=== PATIENT | female | born 1995 | race American Indian/Alaskan Native ===

== ENCOUNTER 2017-07-29 02:40 | Emergency (ER) | payer SELFPAY ==
[2017-07-29 03:31] VITALS: BP 137/86
[2017-07-29 04:25] LABS: Basophils % (Auto) 0.8 % (0.0-1.8); Hematocrit 35.9 % (30.3-42.9); Hemoglobin 12.3 gm/dl (10.1-14.3); Mean Corpuscular HGB Conc 34 % (30-34); Mean Corpuscular Hemoglobin 30 pg (28-32); Mean Corpuscular Volume 89 fl (79-97); Platelet Count 304 K/mm3 (140-440); Red Blood Count 4.05 M/mm3 (3.65-5.03); White Blood Count 7.7 K/mm3 (4.5-11.0)
[2017-07-29 04:49] LABS: Alanine Aminotransferase 20 units/L (7-56); Albumin 3.8 g/dL (3.9-5); Alkaline Phosphatase 42 units/L (35-129); BUN/Creatinine Ratio 16.66; Blood Urea Nitrogen 10 mg/dL (7-17); Calcium 8.9 mg/dL (8.4-10.2); Carbon Dioxide 20 mmol/L (22-30); Glucose 98 mg/dL (65-100); Lipase 23 units/L (13-60); Total Protein 7.6 g/dL (6.3-8.2)
[2017-07-29 04:50] LABS: Anion Gap 19 mmol/L; Potassium 3.7 mmol/L (3.6-5.0); Sodium 135 mmol/L (137-145)
[2017-07-29 05:04] LABS: Bacteria,Urine 1+ /HPF (Negative); Bilirubin,Urine NEG (Negative); Blood,Urine SM (Negative); Ketones,Urine NEG (Negative); Leukocyte Esterase,Urine NEG (Negative); Mucus,Urine 2+ /HPF; Nitrite,Urine NEG (Negative); Protein,Urine <15 mg/dL mg/dL (Negative); Urobilinogen,Urine < 2.0 mg/dL (<2.0)
== END 2017-07-29 04:30 | disposition left against medical advice (07) ==
LOC: ED 02:40
DX: O20.9 Hemorrhage in early pregnancy, unspecified (principal); Z3A.11 11 weeks gestation of pregnancy; Z53.21 Procedure and treatment not carried out due to patient leaving prior to being seen by health care provider
CPT/HCPCS: 36415; 80053; 81001; 81025; 83690; 85025

== ENCOUNTER 2017-09-09 11:55 | Emergency (ER) | payer MEDICAID ==
[2017-09-09 13:09] VITALS: BP 127/80
--- NOTE | 2017-09-09 15:13 | Emergency Department Report ---
ED Female HPI - General Chief complaint: Urogenital-Female Stated complaint: VAGINAL PAIN Time Seen by Provider: 09/09/17 14:50 Source: patient Mode of arrival: Ambulatory Limitations: No Limitations - History of Present Illness Initial comments: pt presents for vagina ulcers pain and discharge x 3 days last contact 5 days ago pt denies n/v abdominal pain MD Complaint: vaginal discharge, possible STD, other (vaginal ulcers) Onset/Timin -: days(s) Radiation: non-radiating Severity: moderate Severity scale (0 -10): 4 Quality: sharp, burning Consistency: constant Improves with: none Worsens with: movement, other (palpation) Are you Now?: No Last Menstrual Period: 09/03/17 EDC: 06/10/18 Associated Symptoms: vaginal discharge, rash. denies: vaginal bleeding, abdominal pain, nausea/vomiting, fever/chills, headaches, loss of appetite, dysuria, hematuria, seizure, shortness of breath, syncope, weakness - Related Data Sexually active: Yes : 2 Para: 1 A: 1 Previous Rx's Medication Instructions Recorded Last Taken Type Acyclovir [Zovirax] 400 mg PO TID #30 tablet 09/09/17 Unknown Rx metroNIDAZOLE [Flagyl] 500 mg PO Q12HR #14 tab 09/09/17 Unknown Rx Allergies Allergy/AdvReac Type Severity Reaction Status Date / Time No Known Allergies Allergy Verified 09/09/17 13:06 ED Review of Systems ROS: Stated complaint: VAGINAL PAIN Other details as noted in HPI Constitutional: denies: chills, fever Eyes: denies: eye pain, eye discharge, vision change ENT: denies: ear pain, throat pain Respiratory: denies: cough, shortness of breath, wheezing Cardiovascular: denies: chest pain, palpitations Endocrine: no symptoms reported Gastrointestinal: denies: abdominal pain, nausea, diarrhea Genitourinary: other (ulcers ). denies: urgency, dysuria, discharge Musculoskeletal: denies: back pain, joint swelling, arthralgia Skin: denies: rash, lesions Neurological: denies: headache, weakness, paresthesias Psychiatric: denies: anxiety, depression Hematological/Lymphatic: denies: easy bleeding, easy bruising ED Past Medical Hx - Past Medical History Previous Medical History?: No - Surgical History Additional Surgical History: - Social History Smoking Status: Never Smoker Substance Use Type: None - Medications Home Medications: Home Medications Medication Instructions Recorded Confirmed Last Taken Type Acyclovir [Zovirax] 400 mg PO TID #30 tablet 09/09/17 Unknown Rx metroNIDAZOLE [Flagyl] 500 mg PO Q12HR #14 tab 09/09/17 Unknown Rx ED Physical Exam - General Limitations: No Limitations General appearance: alert, in no apparent distress - Head Head exam: Present: atraumatic, normocephalic - Eye Eye exam: Present: normal appearance - ENT ENT exam: Present: mucous membranes moist - Neck Neck exam: Present: normal inspection - Respiratory Respiratory exam: Present: normal lung sounds bilaterally. Absent: respiratory distress - Cardiovascular Cardiovascular Exam: Present: regular rate, normal rhythm. Absent: systolic murmur, diastolic murmur, rubs, gallop - GI/Abdominal GI/Abdominal exam: Present: soft - Rectal Rectal exam: Present: deferred - External exam: Present: lesions (x 5 to vulvovagina yellow core painful to touch ). Absent: erythema, swelling, lacerations, ecchymosis, bleeding Speculum exam: Present: erythema, vaginal discharge (thick white malodorous), cervical discharge. Absent: vaginal bleeding, foreign body, tissue, laceration Bi-manual exam: Present: cervical motion tendernes - Extremities Exam Extremities exam: Present: normal inspection - Back Exam Back exam: Present: normal inspection - Neurological Exam Neurological exam: Present: alert, oriented X3 - Psychiatric Psychiatric exam: Present: normal affect, normal mood - Skin Skin exam: Present: warm, dry, intact, normal color. Absent: rash ED Course Vital Signs 09/09/17 13:06 Temperature 98.2 F Pulse Rate 87 Respiratory 16 Rate Blood Pressure 127/80 O2 Sat by Pulse 99 Oximetry ED Medical Decision Making - Medical Decision Making pt presents for vagina ulcers pain and discharge x 3 days last contact 5 days ago pt denies n/v abdominal pain, exam: abd bs x 4 qds soft nontender no rebound no bruit no hernia , vagina: mons intact, vulvovaginal: ulcers x 5 yellow center serious drainage painful to touch, vagina: moderate erythema white thick discharge, cmt, , wet, gc/ch, hsv obtain pending, hcg: neg, ua: mild bacteria , mucus, trace leuk, wetprep: clue cells, plan tx for STD, Genital Herpes, follow up with her [employer] tomorrow. pt verbalized agreement and understanding with discharge plan. Critical care attestation.: If time is entered above; I have spent that time in minutes in the direct care of this critically ill patient, excluding procedure time. ED Disposition Clinical Impression: STD (sexually transmitted disease) Genital herpes Qualifiers: Herpes simplex infection site: vulvovaginitis Qualified Code(s): A60.04 - Herpesviral vulvovaginitis Disposition: TO HOME OR SELFCARE Is pt being admited?: No Does the pt Need Aspirin: No Condition: Good Instructions: Genital Herpes Simplex (ED), Vaginitis (ED) Additional Instructions: follow up with your [employer] Doctor tomorrow as scheduled Prescriptions: Acyclovir [Zovirax] 400 mg PO TID #30 tablet metroNIDAZOLE [Flagyl] 500 mg PO Q12HR #14 tab Referrals: PRIMARY CARE, [Primary Care Provider] - 3-5 Days Forms: Work/School Release Form(ED) Time of Disposition: 16:30
[2017-09-09] MEDS ORDERED: ZITHROMAX PO ONE (15:29)
[2017-09-09] MEDS ORDERED: XYLOCAINE 1% MPF 5 mL INFILTRATI ONE (15:29)
[2017-09-09] MEDS ORDERED: ROCEPHIN IM ONE (15:29)
[2017-09-09 16:26] LABS: Bilirubin,Urine NEG (Negative); Blood,Urine NEG (Negative); Ketones,Urine NEG (Negative); Leukocyte Esterase,Urine TR (Negative); Mucus,Urine 2+ /HPF; Nitrite,Urine NEG (Negative); Protein,Urine <15 mg/dL mg/dL (Negative)
== END 2017-09-09 16:44 | disposition home or self-care (01) ==
LOC: ED 11:55
DX: A60.04 Herpesviral vulvovaginitis (principal); A64 Unspecified sexually transmitted disease
CPT/HCPCS: 36415; 81001; 81025; 86695; 86696; 87210; 96372; 99284; J0696